=== PATIENT | male | born 1965 | race Caucasian/White ===

== ENCOUNTER 2019-09-27 12:12 | Emergency (ER) | payer BC, SELFPAY ==
[2019-09-27] VITALS (17 sets, daily range): BP systolic 133–157; BP diastolic 81–90; PULSE 71–96; RESP 12–25; TEMP 36.6; O2SAT 96–100
--- NOTE | ~2019-09-27 | XR_ITS ---
EXAMINATION: XR chest 2V EXAM DATE: 09/27/2019 12:56 INDICATION: Chest pain. TECHNIQUE: Frontal and lateral projections of the chest obtained and reviewed. Comparison is made to prior examination from 04/01/2018. FINDINGS: The lungs are clear. There are no pleural effusions. The cardiomediastinal silhouette is within normal limits. There is no pneumothorax suspected. The bones and soft tissues are unremarkab le. There is no significant interval change. IMPRESSION: No acute cardiopulmonary findings. Reviewed, dictated and finalized at location B.
--- NOTE | ~2019-09-27 | CT_ITS ---
EXAMINATION: CTA chest PE protocol DATE: 09/27/2019 17:16 INDICATION: Chest pain TECHNIQUE: Computed tomography angiography (CTA) of the chest was performed with 100 mL Omnipaque-350 intravenous contrast timed to evaluate the pulmonary arteries. Coronal maximum intensity projection 3D-reconstructions were created by the technologist. Automated exposure control and iterative reconst ruction technique were employed. Exam dose: 455.32 mGy-cm total exam DLP. COMPARISON: 09/26/2021 view chest FINDINGS: There is diagnostic contrast enhancement of the pulmonary arteries and no evidence of pulmo nary embolism. There is trace pericardial effusion. Heart size is normal. No thoracic aortic aneurysm or dissection. No hilar or mediastinal mass lesion or lymphadenopathy. 4.5 mm left lower lobe pulmonary nodule (series 4 image 82). If there are risk factors such as smokin g, radiating down exposure, consider follow-up imaging in 6 months; otherwise recommend CT follow-up in 12 months. Probable small benign fissural node of the greater fissure (series 4 image 58). Diverticulosis of the splenic flexure of the colon. No adrenal mass lesion. Diffuse idiopathic skeletal hyperostosis of the thoracic spine. No suspicious osteolytic or osteoblas tic lesions are noted. IMPRESSION: Recommend 6 month and 12 month follow-up of 4.5 mm left lower lobe pulmonary nodule depe nding upon risk factors No evidence of pulmonary embolism Trace pericardial effusion Reviewed, dictated and finalized at [facility]. Reviewed, dictated and finalized at location A. IMPRESSION: Recommend 6 month and 12 month follow-up of 4.5 mm left lower lobe pulmonary nodule depending upon risk factors No evidence of pulmonary embolism Trace pericardial effusion
--- NOTE | 2019-09-27 12:20 | ECG_ITS ---
Measurements Intervals [place] Rate: 86 P: 43 CT: 139 QRS: 16 QRSD: 84 T: 29 QT: 340 QTc: 408 Interpretive Statements SINUS RHYTHM NORMAL ECG Electronically Signed On 09-27-2019 14:45:17 CDT by Stevo Wray D.O.
[2019-09-27 12:40] LABS: Basophils Absolute Auto 0.1 K/mm3 (0.0-0.1); Basophils Percent Auto 0.4 % (0.2-1.2); Eosinophils Absolute Auto 0.3 K/mm3 (0-0.3); Eosinophils Percent Auto 2.2 % (0-4.4); Hematocrit 48.6 % (42.0-52.0); Hemoglobin 16.9 g/dL (14.0-18.0); Immature Granulocyte Absolute 0.05 K/mm3 (0.00-0.031); Immature Granulocyte Percent A 0.4 % (0-0.5); Lymphocytes Absolute Auto 2.32 K/mm3 (0.9-3.2); Mean Corpuscular HGB Conc 34.8 g/dl (32-36); Mean Corpuscular Hemoglobin 32.4 pg (26-34); Mean Corpuscular Volume 93.3 fl (80-100); Mean Platelet Volume 8.9 fl (7.4-10.4); Monocytes Absolute Auto 1.4 K/mm3 (0.1-0.6); Neutrophils Absolute Auto 7.5 K/mm3 (1.3-6.7); Platelet Count Result 254 k/mm3 (150-375); Red Blood Count 5.21 M/mm3 (4.6-6.20); Red Cell Distribution Width 13.6 % (11.5-14.5); White Blood Count 11.6 K/mm3 (4.5-10.0)
[2019-09-27] MEDS: ASPIRIN 81 MG CHEWABLE TABLET 324 MG PO (12:46)
[2019-09-27 12:48] LABS: Blood Urea Nitrogen 14 mg/dL (9-20); Carbon Dioxide 28 mmol/L (22-30); Chloride 107 mmol/L (98-107); Estimated CRCL calculation 72 ml/min; Estimated Glomerular Filt Rate > 60; Glucose 115 mg/dL (75-110); Potassium 4.1 mmol/L (3.4-5.0); Prothrombin Time 12.6 Seconds (11.1-14.7); Sodium 138 mmol/L (137-145)
[2019-09-27 12:49] LABS: Partial Thromboplastin Time 27.4 SECONDS (22.3-36.8)
[2019-09-27 13:09] LABS: Troponin I < 0.012 ng/mL (0.000-0.034)
[2019-09-27 15:53] LABS: Troponin I < 0.012 ng/mL (0.000-0.034)
--- NOTE | 2019-09-27 16:15 | ED.GENADULT ---
HPI - General Adult General Chief complaint: Chest Pain Stated complaint: CHEST PAIN Time Seen by Provider: 09/27/19 15:28 History of Present Illness HPI narrative: Patient is a 53 y/o male complaining of mid-sternal, sharp chest pain for several hours since this morning. He rates his pain as 8/10. He states that deep respiration and turning around make his pain worse. There is no pain radiation. He denies any cough, fever or SOB. Related Data Home Medications Medication Instructions Recorded Confirmed No Home Medications 09/27/19 09/27/19 Allergies Allergy/AdvReac Type Severity Reaction Status Date / Time No Known Allergies Allergy Verified 09/27/19 12:22 Review of Systems Constitutional: Constitutional: Denies chills, Denies fever(s), Denies headache(s) and Denies weakness Eyes: Eyes: Denies blurry vision ENT: Denies headache(s) and Denies neck pain Cardiovascular: Cardiovascular: Reports chest pain and Denies dyspnea Respiratory: Respiratory: Denies cough and Denies dyspnea Gastrointestinal: Gastrointestinal: Denies abdominal pain, Denies diarrhea, Denies nausea and Denies vomiting Genitourinary: Genitourinary: Denies hematuria and Denies dysuria Musculoskeletal: Musculoskeletal: Denies back pain and Denies neck pain Neurologic: Denies headache(s) and Denies weakness [facility] Family History Family History Other Diabetes mellitus Family history of arthritis Family history of malignant neoplasm Social History Social History Smoking status: Heavy tobacco smoker Alcohol intake: current Exam Const: General: no acute distress and well developed Orientation/consciousness: oriented to person, oriented to place, oriented to time and patient oriented x3 HENMT: Head: normocephalic Ears: external ears normal General nose exam: Normal external nose present Eyes: General: appearance normal, both eyes and all related structures Conjunctivae: conjunctivae normal Neck: Neck: normal visual inspection and full ROM Chest: Chest palpation & inspection: normal inspection of the chest and no tenderness Resp: Effort & Inspection: normal respiratory effort Auscultation: clear to auscultation bilaterally Cardio: Rate: regular rate Rhythm: regular rhythm GI: GI Palp: No abdominal tenderness and Yes Soft to palpation Skin: General skin exam: normal color and turgor normal Neuro: General: oriented to person, oriented to place, oriented to time and patient oriented x3 Cognition (Neuro): normal cognition Extrem: General: normal to inspection, full ROM and no pedal edema Psych: Appearance: grossly normal Mental Status: mental status grossly normal Affect: normal affect Course Vital Signs Vital signs: Vital Signs Temperature 36.6 C 09/27/19 12:17 Pulse Rate 86 09/27/19 12:17 Respiratory Rate 25 H 09/27/19 12:17 Blood Pressure 157/90 H 09/27/19 12:17 Pulse Oximetry 99 09/27/19 12:17 Temperature 36.6 C 09/27/19 12:17 Pulse Rate 71 09/27/19 18:06 Respiratory Rate 16 09/27/19 18:06 Blood Pressure 151/90 H 09/27/19 18:06 Pulse Oximetry 100 09/27/19 18:06 Medical Decision Making Vital Signs Vital Signs: Vital Signs Temperature 36.6 C 09/27/19 12:17 Pulse Rate 86 09/27/19 12:17 Respiratory Rate 25 H 09/27/19 12:17 Blood Pressure 157/90 H 09/27/19 12:17 Pulse Oximetry 99 09/27/19 12:17 Temperature 36.6 C 09/27/19 12:17 Pulse Rate 71 09/27/19 18:06 Respiratory Rate 16 09/27/19 18:06 Blood Pressure 151/90 H 09/27/19 18:06 Pulse Oximetry 100 09/27/19 18:06 Lab Data Result diagrams: 09/27/19 12:26 09/27/19 12:26 Labs: Lab Results 09/27/19 09/27/19 09/27/19 Range/Units 12:26 12:26 12:26 WBC 11.6 H (4.5-10.0) K/mm3 RBC 5.21 (4.6-6.20) M/mm3 Hgb 16.9 (14.0-18.0) g/dL Hc
[2019-09-27 16:29] LABS: D Dimer 0.72 ug/mL (<0.48)
[2019-09-27] MEDS: KETOROLAC 30 MG/ML VIAL (*BKC) IV PUSH (17:58)
== END 2019-09-27 18:00 | disposition home or self-care (01) ==
PROVIDERS: Emergency Medicine; Emergency Provider Emergency Medicine; PCP Family Medicine
DX: R07.2 Precordial pain (principal); R91.1 Solitary pulmonary nodule; F17.200 Nicotine dependence, unspecified, uncomplicated
CPT/HCPCS: 36415; 71046; 71275; 80048; 84484; 85025; 85380; 85610; 85730; 93005; 96374; 99284; A9270; J1885; Q9967

== ENCOUNTER 2020-01-06 06:36 | Inpatient (IN) | payer BC, SELFPAY ==
--- NOTE | ~2020-01-06 | CT_ITS ---
EXAMINATION: CT abdomen pelvis w con EXAM DATE: 01/06/2020 07:36 INDICATION: Abdominal pain, history diverticulitis. TECHNIQUE: Spiral CT of the abdomen and pelvis was performed following intravenous injection of 100 m L Omnipaque 350. Axial, coronal and sagittal images were reviewed. The dose-length product (DLP) fo r this examination was 464.00 mGy-cm. The exposure was tailored according to patient size (auto mA e xposure control), and iterative reconstruction (ASIR) was used as additional dose reduction technique . Comparison is made to prior examination from 08/27/2015. FINDINGS: The liver, spleen, adrenal glands and pancreas are unremarkable. Gallbladder is unremarkab le. No biliary obstruction. Portal and splenic veins are patent. Kidneys enhance symmetrically. T here is no hydronephrosis. The prostate is unremarkable. Collapsed bladder with prominent wall pro bably from undistended state. There is no retroperitoneal or pelvic lymphadenopathy. There is mild scattered arteriosclerotic disease. There is moderate sigmoid diverticulosis. There is mild adjacent inflammation, some edema of the wall . There is also a tiny fluid pocket along the wall measuring up to 1.2 cm in size. Probably acute unc omplicated diverticulitis with tiny peridiverticular abscess. The appendix is normal. The stomach an d small bowel are unremarkable. There is expected amount of colonic stool. No free intraperitoneal gas. The heart is normal in size. There are no pericardial or pleural effusions. The lung bases are unremarkable. There are no osteoblastic or osteolytic lesions identified. There is small umbili jarod fat-containing hernia. IMPRESSION: 1. Acute sigmoid diverticulitis with probable tiny peridiverticular abscess. Consider treating with antibiotics and following up exam in 2 weeks. 2. Small umbilical hernia. Reviewed, dictated and finalized at location A. IMPRESSION: 1. Acute sigmoid diverticulitis with probable tiny peridiverticular abscess. C onsider treating with antibiotics and following up exam in 2 weeks. 2. Small umbilical hernia.
[2020-01-06 06:39] VITALS: BP 134/74; PULSE 85; RESP 15; TEMP 36.5; O2SAT 98
[2020-01-06 06:59] LABS: Basophils Absolute Auto 0.1 K/mm3 (0.0-0.1); Basophils Percent Auto 0.5 % (0.2-1.2); Eosinophils Absolute Auto 0.2 K/mm3 (0-0.3); Eosinophils Percent Auto 1.6 % (0-4.4); Hematocrit 51.2 % (42.0-52.0); Immature Granulocyte Absolute 0.06 K/mm3 (0.00-0.031); Immature Granulocyte Percent A 0.5 % (0-0.5); Lymphocytes Absolute Auto 2.59 K/mm3 (0.9-3.2); Lymphocytes Percent Auto 22.6 % (18.3-44.2); Mean Corpuscular HGB Conc 35.2 g/dl (32-36); Mean Corpuscular Hemoglobin 32.4 pg (26-34); Mean Corpuscular Volume 92.1 fl (80-100); Mean Platelet Volume 8.9 fl (7.4-10.4); Monocytes Absolute Auto 1.9 K/mm3 (0.1-0.6); Monocytes Percent Auto 16.4 % (2.6-8.5); Neutrophils Absolute Auto 6.7 K/mm3 (1.3-6.7); Neutrophils Percent Auto 58.4 % (45.5-73.1); Platelet Count Result 266 k/mm3 (150-375); Red Blood Count 5.56 M/mm3 (4.6-6.20); Red Cell Distribution Width 12.6 % (11.5-14.5); White Blood Count 11.5 K/mm3 (4.5-10.0)
[2020-01-06 07:10] LABS: Alanine Aminotransferase 22 U/L (4-50); Albumin Level 4.4 g/dL (3.5-5.1); Alkaline Phosphatase 64 U/L (38-126); Anion Gap 7 mmol/L (8-16); Aspartate Amino Transferase 38 U/L (17-59); Bilirubin,Total 0.4 mg/dL (0.2-1.3); Blood Urea Nitrogen 11 mg/dL (9-20); Calcium 9.2 mg/dL (8.4-10.2); Carbon Dioxide 28 mmol/L (22-30); Chloride 105 mmol/L (98-107); Estimated Glomerular Filt Rate 52; Glucose 126 mg/dL (75-110); Lipase 53 U/L (23-300); Potassium 4.2 mmol/L (3.4-5.0); Sodium 140 mmol/L (137-145)
--- NOTE | 2020-01-06 07:13 | ED.ABDPAIN ---
HPI - Abdominal Pain General Chief Complaint: Abdominal Pain Stated Complaint: Abd pain Time Seen by Provider: 01/06/20 07:04 Source: RN notes reviewed History of Present Illness HPI narrative: Patient presents emergency department from home for abdominal pain. Patient states he has had pain in the lower abdomen for the past 4 days. Pain is described as sharp and stabbing in nature and does not radiate. He has a history of diverticulitis and was seen by his PCP 3 days ago started on Cipro and Flagyl and continues to have worsening pain. Denies any fevers or chills chest pain shortness of breath nausea vomiting or any other symptoms states he has been take medication as prescribed. States he last took hydrocodone this morning with minimal relief Related Data Allergies Allergy/AdvReac Type Severity Reaction Status Date / Time No Known Allergies Allergy Verified 01/06/20 06:42 Review of Systems Review of Systems: Narrative: Gen.: Denies fevers or chills ENT: Denies congestion Respiratory: Denies shortness of breath or cough CV: Denies chest pain or palpitations GI: See HPI denies burning, urgency, frequency or hematuria Musculoskeletal: Denies back pain or muscle pain Neuro: Denies numbness, tingling, weakness or focal weakness Skin: Denies rash Except as documented, all other systems reviewed and negative REPLACED BY [facility] Past Medical History Medical History (Updated 01/06/20 @ 08:28 by Jasvir Alvares DO) Diverticulitis Social History Social History (Updated 01/06/20 @ 07:14 by Jasvir Alvares DO) Smoking status: Never smoker Gender identity (if verbalized by the patient): Male Exam Narrative: Exam Narrative: APPEARANCE: No acute distress, nontoxic, resting in bed HEENT: Normocephalic, atraumatic, OMM RESPIRATORY: No respiratory distress, clear to auscultation bilaterally with no rhonchi wheezing or rales CARDIOVASCULAR: RRR s murmur ABDOMINAL: Soft, nondistended, tender palpation right lower quadrant left lower quadrant, no tenderness right upper quadrant left upper quadrant, no rebound or guarding MUSCULOSKELETAl: Moves all extremities. No clubbing, cyanosis or edema. NEURO: Awake and alert. Following commands, speech normal, no focal deficits SKIN:: Warm, dry. Normal Color PSYCHIATRIC: Normal affect/mood Course Course Emergency Course: Discussed Dr. Aguiar presentation work-up. Agrees with admission at this time Discussed with patient and family results of workup and diagnosis. Discussed need for admission. Patient and family understand and agree to current treatment plan Vital Signs Vital signs: Vital Signs Temperature 97.7 F 01/06/20 06:39 Pulse Rate 85 01/06/20 06:39 Respiratory Rate 15 01/06/20 06:39 Blood Pressure 134/74 01/06/20 06:39 Pulse Oximetry 98 01/06/20 06:39 Temperature 97.7 F 01/06/20 06:39 Pulse Rate 66 01/06/20 08:16 Respiratory Rate 18 01/06/20 08:16 Blood Pressure 136/78 01/06/20 08:16 Pulse Oximetry 99 01/06/20 08:16 MDM - Abdominal Pain Lab Data Result diagrams: 01/06/20 06:51 01/06/20 06:51 Labs: Lab Results 01/06/20 01/06/20 01/06/20 Range/Units 06:51 06:51 07:25 WBC 11.5 H (4.5-10.0) K/mm3 RBC 5.56 (4.6-6.20) M/mm3 Hgb 18.0 (14.0-18.0) g/dL Hct 51.2 (42.0-52.0) % MCV 92.1 (80-100) fl MCH 32.4 (26-34) pg MCHC 35.2 (32-36) g/dl RDW 12.6 (11.5-14.5) % Plt Count 266 (150-375) k/mm3 MPV 8.9 (7.4-10.4) fl Immature Gran % (Auto) 0.5 (0-0.5) % Neut % (Auto) 58.4 (45.5-73.1) % Lymph % (Auto) 22.6 (18.3-44.2) % Andrews % (Auto) 16.4 H (2.6-8.5) % Eos % (Auto) 1.6 (0-4.4) % Baso % (Auto) 0.5 (0.2-1.2) % Lymph # (Auto) 2.59 (0.9-3.2) K/mm3 Andrews # (Auto) 1.9 H (0.1-0.6) K/mm3 Eos # (Auto) 0.2 (0-0.3) K/mm3 Baso # (Auto) 0.1 (0.0-0.1) K/mm3 Abs Immat Gran (auto) 0.06 H (0.00-0.031) K/mm3 Absolute Neuts
[2020-01-06] MEDS: SODIUM CHLORIDE 0.9% IV 1,000 ML 999 ML IV CONT (07:23)
[2020-01-06] MEDS: ONDANSETRON INJ 4 MG/2 ML VIAL IV PUSH (07:23)
[2020-01-06] MEDS: MORPHINE SULFATE (*CRX) 4 MG/ML INJ IV PUSH ×4 (07:23→15:16)
[2020-01-06 07:41] LABS: Add Urine Microscopic? YES; Appearance Urine Clear (Clear); Bilirubin Urine Negative (Negative); Blood Urine 3+ (Negative); Color Urine Amber (Yellow); Glucose Urine UA Negative (Negative); Ketones Urine Trace mg/dL (Negative); Leukocyte Esterase Ur 1+ LEU/UL (Negative); Mucus Urine Moderate /lpf; Nitrate Urine Negative (Negative); Protein Urine 1+ mg/dL (Negative); RBC Urine 21-50 /hpf (0-2); Specific Grav Ur 1.026 (1.001-1.035); WBC Urine 0-3 /hpf
[2020-01-06 08:16] VITALS: BP 136/78; PULSE 66; RESP 18; O2SAT 99
--- NOTE | 2020-01-06 09:20 | PC.NURSE ---
This patient, Ramsey Simmons, was admitted to 3 [facility] Surg Room 301-01. Patient/family oriented to hospital policies and general routines including ID bracelet, bed and alarms, visiting hours, pain management, procedures, bathroom and other care routines, personal items, smoking policy, room service/diet, and visiting hours. Valuables list has been completed. Report from Gloria GARCIA. Information on how to activate the Rapid Response Team has been discussed. Patient/Family are encouraged to report perceived risks to care and to ask questions if they do not understand what they are told or what they should do.
[2020-01-06] MEDS: SODIUM CHLORIDE 0.9% IV 1,000 ML 125 ML IV CONT (09:27)
[2020-01-06] MEDS: KETOROLAC 30 MG/ML VIAL (*BKC) IV PUSH (09:29)
[2020-01-06 10:00] VITALS: BP 129/79; PULSE 65; RESP 18; TEMP 36.7; O2SAT 98
[2020-01-06 10:06] VITALS: BMI 26.4
[2020-01-06 14:00] VITALS: BP 125/82; PULSE 60; RESP 18; TEMP 36.8; O2SAT 99
--- NOTE | 2020-01-06 14:15 | PM.IMHP ---
H&P: HPI History of Present Illness Date/Time: 01/06/20 14:00 Chief complaint: Lower abdominal pain. Narrative: Ramsey Simmons is a 54-year-old male smoker, currently being treated for diverticulitis, who presented to the emergency department earlier today via private vehicle from home for evaluation of lower abdominal pain. He reports an insidious onset of diffuse lower abdominal pain which began on Friday evening. The pain is described as cramping in nature with occasional spasms and does not radiate. The pain is similar to previous episodes of diverticulitis and he was started on ciprofloxacin and metronidazole per his primary care provider on January 02. He was also given hydrocodone which he has been taking with only mild benefit. Unfortunately today his pain became much worse and he came in for evaluation. CT of abdomen and pelvis shows possible small travis diverticular abscess and he is being admitted in this setting. Currently he rates his pain 7/10 despite receiving IV morphine approximately 30 minutes ago. He has had some chills but no overt fever. He has not had nausea or vomiting. His last meal was approximately 18:00 last evening, and he believes his food does make his pain a bit worse. Last bowel movement was yesterday, without blood or mucus in the stool. Review of Systems Review of Systems: Narrative: Twelve systems were reviewed with pertinent positives and negatives as per HPI. No fever or sweats. No recent cold or flu symptoms. No sick contacts. He denies chest pain shortness of breath. He has never had signs or symptoms of alcohol withdrawal. Except as documented, all other systems were reviewed and are negative. [facility] Past Medical History Medical History (Updated 01/06/20 @ 16:29 by Luz Marina Camacho PA-C) Diverticulitis He has had 5 or 6 episodes of such since 2008. Pulmonary nodule Tobacco dependence Surgical History Surgical History (Updated 01/06/20 @ 16:29 by Luz Marina Camacho PA-C) History of arthroscopy of right knee History of elbow surgery Left elbow surgery. Family History Family History Father Diabetes mellitus Hypertension Social History Social History (Updated 01/06/20 @ 16:30 by Luz Marina Camacho PA-C) Social History: Surrogate decision maker: Eun Simmons, . Code status: Full code. Smoking packs per day: 1 Smoking cigarettes per day: 20.0 Years smoked: 30 Smoking pack-years: 30.00 Smoking status: Current every day smoker Tobacco type: cigarettes Alcohol intake: current Drinks per week: 18 Additional living arrangements comments: Lives in [place] with his . Additional occupation/education comments: Works at [employer]. Gender identity (if verbalized by the patient): Male Spiritual care concerns: No Meds Home Medications and Allergies Home Medications Medication Instructions Recorded Confirmed Type cholecalciferol (vitamin D3) 10 mcg PO DAILY 01/06/20 01/06/20 History [Vitamin D3] ciprofloxacin HCl 500 mg PO Q12H 01/06/20 01/06/20 History hydrocodone-acetaminophen 1 tablet PO Q6H PRN 01/06/20 01/06/20 History metronidazole 500 mg PO Q8H 01/06/20 01/06/20 History multivitamin [Daily Multi-Vitamin] 1 tablet PO DAILY 01/06/20 01/06/20 History Allergies Allergy/AdvReac Type Severity Reaction Status Date / Time No Known Allergies Allergy Verified 01/06/20 06:42 Vital Signs Vital Signs - 24 hr 01/06/20 06:39 01/06/20 08:16 Temperature 97.7 F Pulse Rate 85 66 Respiratory Rate 15 18 Blood Pressure 134/74 136/78 Pulse Oximetry 98 99 Exam Narrative: Exam Narrative: General: A well-developed male sitting up in bed in no acute distress. Weight: 85.9 kg. BMI: 26.4. HEENT: Wearing corrective lenses. Pupils reactive. Extraocular motions intact. Oral mucosa tacky. Neck: Supple. Respiratory: Lungs are clear to auscultati
[2020-01-06] MEDS: HYDROcodone/acetaminophen (*CRX) 5-325 MG TABLET 1 TAB PO ×2 (16:19→22:11)
[2020-01-06] MEDS: SODIUM CHLORIDE 0.9% IV 1,000 ML 85 ML IV CONT (18:44)
[2020-01-06 19:35] VITALS: O2SAT 96
[2020-01-06] MEDS: HYDROmorphone HCL INJ (*CRX) 1 MG/ML SYR 0.5 MG IV PUSH (21:10)
[2020-01-06 22:00] VITALS: BP 145/71; PULSE 63; RESP 20; TEMP 36.6; O2SAT 96
[2020-01-07] MEDS: HYDROcodone/acetaminophen (*CRX) 5-325 MG TABLET 1 TAB PO ×4 (04:18→23:33)
[2020-01-07] MEDS: SODIUM CHLORIDE 0.9% IV 1,000 ML 85 ML IV CONT ×2 (04:21→19:25)
[2020-01-07 06:00] VITALS: BP 140/70; PULSE 66; RESP 20; TEMP 36.7; O2SAT 96
[2020-01-07 06:30] LABS: Basophils Absolute Auto 0.1 K/mm3 (0.0-0.1); Basophils Percent Auto 0.6 % (0.2-1.2); Eosinophils Absolute Auto 0.4 K/mm3 (0-0.3); Eosinophils Percent Auto 3.1 % (0-4.4); Hemoglobin 15.9 g/dL (14.0-18.0); Immature Granulocyte Absolute 0.06 K/mm3 (0.00-0.031); Immature Granulocyte Percent A 0.5 % (0-0.5); Lymphocytes Absolute Auto 2.29 K/mm3 (0.9-3.2); Lymphocytes Percent Auto 18.4 % (18.3-44.2); Mean Corpuscular HGB Conc 34.6 g/dl (32-36); Mean Corpuscular Hemoglobin 31.9 pg (26-34); Mean Corpuscular Volume 92.4 fl (80-100); Mean Platelet Volume 9.2 fl (7.4-10.4); Monocytes Absolute Auto 1.9 K/mm3 (0.1-0.6); Monocytes Percent Auto 15.4 % (2.6-8.5); Neutrophils Absolute Auto 7.7 K/mm3 (1.3-6.7); Platelet Count Result 237 k/mm3 (150-375); Red Blood Count 4.98 M/mm3 (4.6-6.20); Red Cell Distribution Width 12.5 % (11.5-14.5); White Blood Count 12.4 K/mm3 (4.5-10.0)
[2020-01-07] MEDS: HYDROmorphone HCL INJ (*CRX) 1 MG/ML SYR 0.5 MG IV PUSH ×3 (06:31→18:43)
[2020-01-07 06:35] LABS: Anion Gap 4 mmol/L (8-16); Blood Urea Nitrogen 11 mg/dL (9-20); Calcium 8.3 mg/dL (8.4-10.2); Carbon Dioxide 28 mmol/L (22-30); Chloride 105 mmol/L (98-107); Estimated CRCL calculation 49 ml/min; Estimated Glomerular Filt Rate 52; Glucose 80 mg/dL (75-110); Magnesium 2.2 mg/dL (1.6-2.3); Potassium 4.4 mmol/L (3.4-5.0); Sodium 137 mmol/L (137-145)
[2020-01-07] MEDS: MULTIVITAMINS THERAPEUTIC TAB (*BKC) 1 TABLET PO (08:23)
[2020-01-07] MEDS: CHOLECALCIFEROL 400 UNITS TABLET (VIT D) PO (08:23)
--- NOTE | 2020-01-07 09:53 | PM.IMPN ---
Progress Note: A&P Assessment and Plan (1) Abscess of sigmoid colon due to diverticulitis: Code(s): K57.20 - Diverticulitis of large intestine with perforation and abscess without bleeding Status: Acute Assessment and Plan: CT abd/pelvis notes acute sigmoid diverticulitis with probably tiny peridiverticular abscess. Clinically, patient appears to have improved with some improvement overnight with IV antibiotics and tolerating CLD. Will consider Surgery consult pending improvement; likely will discuss case today to see if they need to follow patient Continue CLD; if tolerating diet and continued clinical improvement, will consider advancing Pain control as needed; consider weaning narcotics if continued improvement Continue IV zosyn for now Monitor (2) Failure of outpatient treatment: Code(s): Z78.9 - Other specified health status Status: Acute Assessment and Plan: Patient started treatment of diverticulitis as an outpatient on 01/[address] a/p results as above. Continue treatment with IV antibiotics as above Consider surgery consult as above (3) Diverticulitis: Code(s): K57.92 - Diverticulitis of intestine, part unspecified, without perforation or abscess without bleeding Status: Acute Assessment and Plan: Please see above a/p (4) Renal failure: Code(s): N19 - Unspecified kidney failure Status: Acute Assessment and Plan: Cr 1.40 today; stable. Appears to be at baseline based on review of labs from previous hospital stays dating back to 2016, although also possibly secondary to poor PO intake Monitor Continue with IV fluids for now (5) Tobacco dependence: Code(s): F17.200 - Nicotine dependence, unspecified, uncomplicated Status: Acute Assessment and Plan: No need for nicotine patch at this time Subjective Date/time seen: 01/07/20 09:53 Interval history: Patient is a 54 yo M with history of diverticulosis with several previous episodes of diverticulitis who is seen in follow up for diverticulitis. Patient states he feels slightly better today, although pain still occasionally ranges between 5-6/10. He states he tolerated CLD yesterday. He has definitely seen an improvement since Friday. No other complaints. Denies f/c/s, headaches, dizziness, lightheadedness, cp/palpitations, sob/cough, n/v/d/c, melena, BRBPR, dysuria, hematuria, cloudy urine, calf pain/swelling. Review of Systems Review of Systems: All systems reviewed & are unremarkable except as noted in HPI and below Exam Narrative: Exam Narrative: General: A well-developed male sitting up in bed in no acute distress. HEENT: Wearing corrective lenses. MMM Respiratory: Lungs are clear to auscultation bilaterally. Cardiovascular: Regular rate and rhythm with S1-S2. Gastrointestinal: Abdomen is soft and nondistended with positive bowel sounds. He is slightly tender to palpation in lower abdomen, diffusely. No voluntary guarding or rebound tenderness. Skin: Warm and dry. No rash or lesions on limited exam. Extremities: No cyanosis, clubbing, or edema. Radial and pedal pulses intact. NTTP b/l calves Neurological: Alert. Speech is clear. No gross focal deficits to casual conversation. Psychiatric: Pleasant and cooperative with normal mood and affect. Judgment and insight intact. Objective Data Vital Signs Vital Signs: Last Vital Signs Temp 98.0 F 01/07/20 06:00 Pulse 66 01/07/20 06:00 Resp 20 01/07/20 06:00 BP 140/70 01/07/20 06:00 Pulse Ox 96 01/07/20 06:00 Intake/Output Intake/Output: Intake & Output 01/04/20 01/05/20 01/06/20 01/07/20 23:59 23:59 23:59 23:59 Intake Total 2450 1890 Output Total 125 1900 Balance 232
[2020-01-07 14:00] VITALS: BP 110/68; PULSE 64; RESP 16; TEMP 36.6; O2SAT 99
[2020-01-07 22:00] VITALS: BP 116/60; PULSE 69; RESP 20; TEMP 36.3; O2SAT 98
[2020-01-08] MEDS: HYDROmorphone HCL INJ (*CRX) 1 MG/ML SYR 0.5 MG IV PUSH ×2 (00:56→07:26)
[2020-01-08] MEDS: SODIUM CHLORIDE 0.9% IV 1,000 ML 85 ML IV CONT (05:42)
[2020-01-08] MEDS: HYDROcodone/acetaminophen (*CRX) 5-325 MG TABLET 1 TAB PO ×4 (05:45→23:58)
[2020-01-08 06:00] VITALS: BP 126/66; PULSE 68; RESP 20; TEMP 36.6; O2SAT 98
[2020-01-08 06:22] LABS: Basophils Absolute Auto 0.1 K/mm3 (0.0-0.1); Basophils Percent Auto 0.5 % (0.2-1.2); Eosinophils Absolute Auto 0.2 K/mm3 (0-0.3); Eosinophils Percent Auto 2.1 % (0-4.4); Hematocrit 45.6 % (42.0-52.0); Hemoglobin 15.7 g/dL (14.0-18.0); Immature Granulocyte Absolute 0.03 K/mm3 (0.00-0.031); Immature Granulocyte Percent A 0.3 % (0-0.5); Lymphocytes Absolute Auto 2.45 K/mm3 (0.9-3.2); Lymphocytes Percent Auto 22.9 % (18.3-44.2); Mean Corpuscular HGB Conc 34.4 g/dl (32-36); Mean Corpuscular Hemoglobin 31.5 pg (26-34); Mean Corpuscular Volume 91.4 fl (80-100); Mean Platelet Volume 9.1 fl (7.4-10.4); Monocytes Absolute Auto 1.4 K/mm3 (0.1-0.6); Monocytes Percent Auto 13.1 % (2.6-8.5); Neutrophils Absolute Auto 6.5 K/mm3 (1.3-6.7); Neutrophils Percent Auto 61.1 % (45.5-73.1); Platelet Count Result 269 k/mm3 (150-375); Red Blood Count 4.99 M/mm3 (4.6-6.20); Red Cell Distribution Width 12.3 % (11.5-14.5); White Blood Count 10.7 K/mm3 (4.5-10.0)
[2020-01-08 06:41] LABS: Anion Gap 4 mmol/L (8-16); Blood Urea Nitrogen 10 mg/dL (9-20); Calcium 8.5 mg/dL (8.4-10.2); Carbon Dioxide 28 mmol/L (22-30); Chloride 106 mmol/L (98-107); Estimated CRCL calculation 71 ml/min; Estimated Glomerular Filt Rate > 60; Glucose 78 mg/dL (75-110); Magnesium 2.4 mg/dL (1.6-2.3); Potassium 4.2 mmol/L (3.4-5.0); Sodium 138 mmol/L (137-145)
[2020-01-08] MEDS: MULTIVITAMINS THERAPEUTIC TAB (*BKC) 1 TABLET PO (08:26)
[2020-01-08] MEDS: CHOLECALCIFEROL 400 UNITS TABLET (VIT D) PO (08:26)
--- NOTE | 2020-01-08 10:42 | PM.IMPN ---
Progress Note: A&P Assessment and Plan (1) Abscess of sigmoid colon due to diverticulitis: Code(s): K57.20 - Diverticulitis of large intestine with perforation and abscess without bleeding Status: Acute Assessment and Plan: CT abd/pelvis notes acute sigmoid diverticulitis with probably tiny peridiverticular abscess. Clinically, patient appears to have continued improvement. Tolerating diet. Pain improved. Comfortable with advancing diet. Discussed case with General Surgeon, Dr. 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 He did, however, recommend he follow up with him as an outpatient in 2 weeks to discuss further intervention as he has had several episodes of diverticulitis and may be a candidate for surgery. Patient and agreeable to this. Dr. Pompa recommended low fiber diet for 2 weeks once clinically improved. Also recommended PO Cipro and Flagyl at discharge. Advance diet as tolerated to low fiber. Start with FLD for lunch Pain control as needed; will wean narcotics today Continue IV zosyn for now Will d/c IVF Monitor (2) Failure of outpatient treatment: Code(s): Z78.9 - Other specified health status Status: Acute Assessment and Plan: Patient started treatment of diverticulitis as an outpatient on 01/[address] a/p results as above. Continue treatment with IV antibiotics as above Consider surgery consult as above (3) Diverticulitis: Code(s): K57.92 - Diverticulitis of intestine, part unspecified, without perforation or abscess without bleeding Status: Acute Assessment and Plan: Please see above a/p (4) Renal failure: Code(s): N19 - Unspecified kidney failure Status: Acute Assessment and Plan: Cr 1.10 today; stable. Appears to be at baseline based on review of labs from previous hospital stays dating back to 2016, although also possibly secondary to poor PO intake Monitor Stop IVF F/u with PCP (5) Tobacco dependence: Code(s): F17.200 - Nicotine dependence, unspecified, uncomplicated Status: Acute Assessment and Plan: No need for nicotine patch at this time (6) Hematuria: Code(s): R31.9 - Hematuria, unspecified Status: Acute Assessment and Plan: As per HPI, patient has had longstanding issue with hematuria seemingly after sustaining a blunt, traumatic injury at work and has seen Dr. Sauer in the past. Recommended he continue to follow up with his PCP and even Dr. Sauer for further management. He and is agreeable to this. CT abd/pelvis show no signs of renal/bladder stones, unremarkable prostate, although there is a collapsed bladder with prominent wall likely from undistended state per Radiologist interpretation. Subjective Date/time seen: 01/08/20 10:42 Interval history: Patient is a 54 yo M with history of diverticulosis with several previous episodes of diverticulitis who is seen in follow up for diverticulitis. Patient states he feels better today. Current pain 2/10, but occasionally has severe pain he associates with brief spasms. Has had several nonbloody BMs overnight. tolerating diet. Feels comfortable with advancing diet. Notes that he has had longstanding microscopic hematuria for quite some time now after he sustained a blunt traumatic injury to the lower abdomen at work. He has seen with Dr. Sauer about this issue in the past without definitive answer. No other complaints. Denies f/c/s, headaches, dizziness, lightheadedness, cp/palpitations, sob/cough, n/v/d/c, melena, BRBPR, dysuria, hematuria, cloudy
[2020-01-08 14:00] VITALS: BP 129/73; PULSE 68; RESP 20; TEMP 36.5; O2SAT 95
[2020-01-08] MEDS: MELATONIN 5 MG TABLET 10 MG PO (20:19)
[2020-01-08 22:00] VITALS: BP 122/63; PULSE 60; RESP 20; TEMP 36.6; O2SAT 96
[2020-01-09 06:00] VITALS: BP 110/67; PULSE 68; RESP 16; TEMP 36.2; O2SAT 97
[2020-01-09 06:13] LABS: Hematocrit 46.3 % (42.0-52.0); Hemoglobin 16.2 g/dL (14.0-18.0); Mean Corpuscular Volume 91.3 fl (80-100); Mean Platelet Volume 9.3 fl (7.4-10.4); Platelet Count Result 286 k/mm3 (150-375); Red Blood Count 5.07 M/mm3 (4.6-6.20); Red Cell Distribution Width 12.2 % (11.5-14.5); White Blood Count 8.8 K/mm3 (4.5-10.0)
[2020-01-09 06:20] LABS: Anion Gap 5 mmol/L (8-16); Blood Urea Nitrogen 7 mg/dL (9-20); Calcium 8.8 mg/dL (8.4-10.2); Carbon Dioxide 29 mmol/L (22-30); Chloride 107 mmol/L (98-107); Estimated CRCL calculation 65 ml/min; Estimated Glomerular Filt Rate > 60; Glucose 98 mg/dL (75-110); Magnesium 2.3 mg/dL (1.6-2.3); Potassium 4.1 mmol/L (3.4-5.0); Sodium 141 mmol/L (137-145)
[2020-01-09] MEDS: MULTIVITAMINS THERAPEUTIC TAB (*BKC) 1 TABLET PO (08:55)
[2020-01-09] MEDS: CHOLECALCIFEROL 400 UNITS TABLET (VIT D) PO (08:55)
--- NOTE | 2020-01-09 09:13 | PM.DS ---
DS: Admitting Diagnosis Admitting Diagnosis Admitting Diagnosis: Lower abdominal pain. DS: Discharge Diagnosis Discharge Diagnosis (1) Abscess of sigmoid colon due to diverticulitis: Status: Acute Assessment and Plan: CT abd/pelvis notes acute sigmoid diverticulitis with probably tiny peridiverticular abscess. Clinically, patient appears to have continued improvement again today. Tolerating Low fiber diet overnight and today. Pain improved, although has isolated episodes of sharp pain associated with certain movements and resolve quickly. Discussed case with General Surgeon, Dr. Pompa, earlier in stay who reviewed the case and felt he would not change management analyst at this point and therefore did not feel he needed to be consulted at this moment, unless patient's conditioned worsened. He recommended patient should follow up with him as an outpatient in 2 weeks to discuss further intervention as he has had several episodes of diverticulitis and may be a candidate for surgery. Patient and agreeable to this. Dr. Pompa recommended low fiber diet for 2 weeks once clinically improved. Also recommended PO Cipro and Flagyl at discharge. Continue Low fiber diet x 2 weeks, then high fiber diet Will do a few doses of Bradley for breakthrough pain after discharge, but otherwise, will do Tylenol as needed D/c home today Will resume his cipro and flagyl tonight and have him discuss with his PCP as to duration of treatment or if he should change abx (2) Failure of outpatient treatment: Status: Acute Assessment and Plan: Patient started treatment of diverticulitis as an outpatient on 01/[address] a/p results as above. IV zosyn during stay with significant improvement OP surgical referral will be given F/u with PCP (3) Diverticulitis: Status: Acute Assessment and Plan: Please see above a/p (4) Renal failure: Status: Acute Assessment and Plan: Cr 1.20 today; stable. Appears to be at baseline based on review of labs from previous hospital stays dating back to 2016, although also possibly secondary to poor PO intake BMP next week F/u with PCP (5) Tobacco dependence: Status: Acute Assessment and Plan: No need for nicotine patch at this time (6) Hematuria: Status: Acute Assessment and Plan: As per previous follow up notes, patient has had longstanding issue with hematuria seemingly after sustaining a blunt, traumatic injury at work and has seen Dr. Sauer in the past. Recommended he continue to follow up with his PCP and even Dr. Sauer for further management. He and his agreeable to this. CT abd/pelvis show no signs of renal/bladder stones, unremarkable prostate, although there is a collapsed bladder with prominent wall likely from undistended state per Radiologist interpretation. DS: Summary Hospital Course Reason for hospitalization: Diverticulitis, failed outpatient treatment Hospital Course: Patient is a 54 yo male smoker, who was being treated for diverticulitis prior to arrival, who presented to the emergency department on 01/05 via private vehicle from home for evaluation of lower abdominal pain. Patient unfortunately had worsening lower abdominal pain despite being treated with oral antibiotics which prompted him to proceed to the ED. While in the ED, CT abd/pelvis found possible small travis diverticular abscess and leukocytosis. Patient was started on IV zosyn from the ED. Patient admitted under this setting. Please see H&P for further details. Presenting VS: Temp Pulse Resp BP Pulse Ox 97.7 F 85 15 134/74 98 01/06/20 06:39 01/06/20 06:39 01/06/20 06:39 01/06/20 06:39 01/06/20 06:39 Presenting Pertinent labs
== END 2020-01-09 12:15 | disposition home or self-care (01) | DRG 392 ==
LOC: ANHED 08:28 → ANH3MEDSUR 08:44
PROVIDERS: Emergency Medicine; Admitting Provider Family Medicine; Emergency Provider Emergency Medicine; PCP Family Medicine; Visit Provider Physician Assistant
DX: K57.20 Diverticulitis of large intestine with perforation and abscess without bleeding (principal); N17.9 Acute kidney failure, unspecified; R31.9 Hematuria, unspecified; R91.1 Solitary pulmonary nodule; F17.210 Nicotine dependence, cigarettes, uncomplicated
CPT/HCPCS: 36415; 74177; 80048; 80053; 81001; 83690; 83735; 85025; 85027; 96361; 96365; 96375; 99285; A9270; G0378; J1170; J1885; J2270; J2405; J2543; J7030; Q9967

== ENCOUNTER 2020-01-18 07:36 | Outpatient (CLI) | payer BC, SELFPAY ==
--- NOTE | ~2020-01-18 | CT_ITS ---
EXAMINATION: CT abdomen pelvis wo con DATE: 01/18/2020 07:54 INDICATION: Diverticulitis with abscess TECHNIQUE: Computed tomography (CT) of the abdomen and pelvis was performed without intravenous contr ast. The dose-length product (DLP) was 422.00 mGy-cm. Automated exposure control and iterative recons truction technique were employed. COMPARISON: 01/06/2020 FINDINGS: Minimal dependent atelectasis is present in the lung bases. The heart size is normal. Stabl e nodules of the visualized lung bases are consistent with old granulomatous disease. The liver, sple en, pancreas, gallbladder, and adrenal glands are normal. The kidneys are unremarkable. The appendix is normal. No pathologically enlarged abdominal or pelvic lymph nodes are identified. There is no mariusz e intraperitoneal gas or evidence of bowel obstruction. Sigmoid diverticulosis is again noted. Althou gh limited by the absence of intravenous contrast, the previously identified intramural abscess of th e sigmoid colon is no longer identified. There is a small fat-containing umbilical hernia. There is m ild lumbar spondylosis. IMPRESSION: 1. Colonic diverticulosis with interval resolution of previously described abscess. No acute findings . Reviewed, dictated and finalized at location A. IMPRESSION: 1. Colonic diverticulosis with interval resolution of previously described absc ess. No acute findings.
== END 2020-01-18 07:37 | disposition home or self-care (01) ==
PROVIDERS: PCP Family Medicine; Visit Provider Family Medicine
DX: K57.90 Diverticulosis of intestine, part unspecified, without perforation or abscess without bleeding (principal)
CPT/HCPCS: 74176

== ENCOUNTER → 2020-02-16 09:50 | Outpatient (CLI) | payer BC, SELFPAY ==
--- NOTE | ~2020-02-16 | MR_ITS ---
EXAMINATION: MR lumbar spine wo con DATE: 02/16/2020 10:20 INDICATION: Low back pain TECHNIQUE: Magnetic resonance imaging (MRI) of the lumbar spine was performed without intravenous con trast. Sequences included sagittal T2-weighted FSE, sagittal T2-weighted FS FSE, sagittal T1-weighted FSE, and axial T2-weighted FSE. COMPARISON: None FINDINGS: Alignment is normal. Vertebral body heights are normal. Moderate disc height loss with mild fibrofatt y and fibrovascular degenerative endplate changes at T11-T12. Mild to moderate disc height loss at L5 -S1, mild disc height loss at L3-L4 and L4-L5 and disc desiccation without significant disc height lo ss at L2-L3. There is annular fissures at L4-5 and L5-S1. There is a tiny Schmorl's node associated w ith the annular fissure along the posterior rim of L5 with mild surrounding marrow edema. Marrow sign al is otherwise normal. The conus medullaris terminates at L2. There is normal signal in the caudal s dahlia cord. A couple subcentimeter T2 hyperintense left renal cyst. Several diverticula along the vis ualized portion of the descending colon. Paravertebral soft tissues are unremarkable. The following d isc levels are specifically discussed: T11-T12: Disc is bulging. There is mild bilateral facet joint osteoarthritis. There is mild left neur al foraminal stenosis. There is mild central canal stenosis. T12-L1: The disc does not extend beyond the endplate margin. There is mild bilateral facet joint oste oarthritis. There is no neural foraminal stenosis. There is no central canal stenosis. L1-L2: The disc does not extend beyond the endplate margin. There is mild bilateral facet joint osteo arthritis. There is no neural foraminal stenosis. There is no central canal stenosis. L2-L3: Disc is mildly bulging. There is mild bilateral facet joint osteoarthritis. There is minimal b ilateral neural foraminal stenosis. There is minimal central canal stenosis. L3-L4: Disc is mildly bulging. There is mild bilateral facet joint osteoarthritis. There is mild bila teral neural foraminal stenosis. There is mild central canal stenosis. L4-L5: Disc is bulging. There is mild bilateral facet joint osteoarthritis. There is mild bilateral n eural foraminal stenosis. There is mild central canal stenosis. L5-S1: Disc is bulging. There is a right and moderate to severe left facet joint osteoarthritis. Ther e is moderate bilateral neural foraminal stenosis. There is mild central canal stenosis. IMPRESSION: 1. Moderate lower thoracic and lower lumbar spondylosis. Reviewed, dictated and finalized at location A. NT SELECTOR
== END ==
PROVIDERS: Visit Provider Nurse Practitioner Family
DX: M47.894 Other spondylosis, thoracic region (principal); M47.896 Other spondylosis, lumbar region
CPT/HCPCS: 72148

== ENCOUNTER 2020-08-23 02:56 | Emergency (ER) | payer BC, SELFPAY ==
[2020-08-23 02:58] VITALS: BP 143/81; PULSE 85; RESP 18; TEMP 36.7; O2SAT 98
--- NOTE | 2020-08-23 03:33 | ED.EXTPRO ---
HPI - Extremity Problem General Chief complaint: Extremity Problem,Nontraumatic Stated complaint: right shoulder blade pain-left side of neck pain Time Seen by Provider: 08/23/20 03:13 Source: patient Mode of arrival: ambulatory Limitations: no limitations History of Present Illness HPI Narrative: Patient is a 54-year-old male complaining of left-sided neck pain, left trapezius, 10 on 10, worse with movement and palpation of his left trapezius, radiating to his right shoulder that started at 2 AM yesterday and has progressively worsened. Patient denies any injury to the area. Patient denies any weakness, numbness or incontinence. Patient denies any headache, dizziness, chest pain, shortness of breath, abdominal pain, nausea, vomiting, fever or chills. Related Data Home Medications Medication Instructions Recorded Confirmed cholecalciferol (vitamin D3) 10 mcg PO DAILY 01/06/20 01/06/20 [Vitamin D3] ciprofloxacin HCl 500 mg PO Q12H 01/06/20 01/06/20 hydrocodone-acetaminophen 1 tablet PO Q6H PRN 01/06/20 01/06/20 metronidazole 500 mg PO Q8H 01/06/20 01/06/20 multivitamin [Daily Multi-Vitamin] 1 tablet PO DAILY 01/06/20 01/06/20 Allergies Allergy/AdvReac Type Severity Reaction Status Date / Time morphine AdvReac Vomiting Verified 08/23/20 02:58 tramadol AdvReac Vomiting Verified 08/23/20 02:58 Review of Systems Review of Systems: All systems reviewed & are unremarkable except as noted in HPI and below Constitutional: Constitutional: Denies body ache(s), Denies chills, Denies excessive sweating, Denies fatigue, Denies fever(s), Denies headache(s), Denies lethargy, Denies malaise, Denies weakness and Denies weight loss Eyes: Eyes: Denies blurry vision, Denies change in vision and Denies loss of vision ENT: Denies dizziness, Denies ear discharge, Denies headache(s), Denies lip swelling, Denies epistaxis, Denies nasal congestion, Denies neck pain, Denies throat swelling and Denies tongue swelling Cardiovascular: Cardiovascular: Denies chest pain, Denies chest pain at rest, Denies chest pain with activity, Denies diaphoresis, Denies rapid heart rate, Denies edema, Denies irregular heart rhythm, Denies lightheadedness, Denies palpitations, Denies dyspnea and Denies dyspnea on exertion Respiratory: Respiratory: Denies chest congestion, Denies cough, Denies hemoptysis, Denies dyspnea and Denies dyspnea on exertion Gastrointestinal: Gastrointestinal: Denies abdominal pain, Denies melena, Denies hematochezia, Denies diarrhea, Denies nausea, Denies vomiting and Denies hematemesis Musculoskeletal: Musculoskeletal: Denies abnormal gait, Denies deformity, Denies joint swelling and Denies numbness Neurologic: Denies Abnormal speech present, Denies abnormal gait, Denies confusion, Denies dizziness, Denies headache(s), Denies focal weakness, Denies loss of vision, Denies numbness, Denies Other visual disturbances, Denies Sensory deficit (Neuro) and Denies weakness Psychiatric: Psychiatric: Denies confusion, Denies depression, Denies auditory hallucinations, Denies homicidal ideation and Denies suicidal ideation Endocrine: Endocrine: Denies cold intolerance, Denies excessive sweating, Denies fatigue, Denies heat intolerance and Denies palpitations Hematologic/Lymphatic: Hematologic/Lymphatic: Denies easy bleeding and Denies easy bruising Allergic/Immunologic: Allergic/Immunologic: Denies lip swelling, Denies throat swelling and Denies tongue swelling PMFSH Past Medical History Medical History (Updated 08/23/20 @ 04:46 by Jasvir Perla MD) Diverticulitis He has had 5 or 6 episodes of such since 2008. Pulmonary nodule Tobacco dependence Surgical History Surgical History History of arthroscopy of right knee History of elbow surgery Left elbow surgery. Family History Family History Father Diabetes mellitus Hypertens
[2020-08-23] MEDS: KETOROLAC 30 MG/ML VIAL (*BKC) IV PUSH (03:50)
[2020-08-23] MEDS: diazePAM INJ (*CRX) 10 MG/2 ML SYRINGE 5 MG IV PUSH (03:51)
[2020-08-23] MEDS: HYDROcodone/acetaminophen (*CRX) 5-325 MG TABLET 2 TAB PO (03:58)
[2020-08-23 05:00] VITALS: BP 136/72; PULSE 88; RESP 18; TEMP 36.6; O2SAT 100
== END 2020-08-23 05:00 | disposition home or self-care (01) ==
PROVIDERS: Emergency Provider Emergency Medicine; PCP Family Medicine
DX: M43.6 Torticollis (principal); F17.210 Nicotine dependence, cigarettes, uncomplicated
CPT/HCPCS: 96374; 96375; 99284; A9270; J1885; J3360

== ENCOUNTER 2021-01-03 10:43 | Outpatient (CLI) | payer BC, SELFPAY ==
--- NOTE | ~2021-01-03 | XR_ITS ---
EXAMINATION: XR ribs RT 2V EXAM DATE: 01/03/2021 11:14 INDICATION: Right Side Lower Lateral Rib Pain After Twisting Injury. TECHNIQUE: Frontal projection of the upper right ribs, frontal projection of the lower right ribs, ob lique projection of the right ribs, without chest x-ray(s) for interpretation. Correlation is made to chest x-ray 09/27/2019. FINDINGS: There are no displaced acute right rib fractures identified. There is no soft tissue abno rmality seen. No confluent consolidation, pneumothorax or pleural effusion suspected. IMPRESSION: Unremarkable right rib exam. Reviewed, dictated and finalized at location A.
== END 2021-01-03 10:44 | disposition home or self-care (01) ==
LOC: ANHIMG 10:48
PROVIDERS: PCP Family Medicine; Visit Provider Physician Assistant
DX: R07.81 Pleurodynia (principal)
CPT/HCPCS: 71100

== ENCOUNTER 2023-01-06 10:19 | Outpatient (CLI) | payer BC, SELFPAY ==
--- NOTE | ~2023-01-06 | XR_ITS ---
Supine and upright views of the abdomen Clinical history: Abdominal pain Findings: Bowel gas pattern is nonspecific. No evidence for obstruction or free air. No abnormal mass lesion or calcification is seen. Osseous structures are intact. Impression: No significant abnormality is seen. Reviewed, dictated and finalized at [facility]. Impression: No significant abnormality is seen.
== END 2023-01-06 10:20 | disposition home or self-care (01) ==
LOC: ANHIMG 10:28
PROVIDERS: PCP Family Medicine; Visit Provider Physician Assistant
DX: R10.9 Unspecified abdominal pain (principal)
CPT/HCPCS: 74018

== ENCOUNTER 2023-01-22 11:29 | Outpatient (CLI) | payer BC, SELFPAY ==
--- NOTE | ~2023-01-22 | XR_ITS ---
XR lumbar spine min 4V DATE: 01/22/2023 11:50 INDICATION: Low back pain for 3 weeks. No injury. TECHNIQUE: AP, lateral, bilateral oblique views, coned lateral lumbosacral view COMPARISON: 12/28/2018 lumbar spine 02/16/2020 MRI lumbar spine FINDINGS: Mild thoracolumbar levoscoliosis. Normal alignment lumbar spine. No fracture or bone destruction. The lumbar pedicles are intact. No sp ondylolisthesis is noted. There is moderate degenerative spurring of the lumbar spine. Lumbar and lumbosacral interspaces are r elatively well preserved. The sacroiliac joints are normally aligned. IMPRESSION: Moderate degenerative spurring Reviewed, dictated and finalized at location B.
== END 2023-01-22 11:30 | disposition home or self-care (01) ==
PROVIDERS: PCP Family Medicine; Visit Provider Physician Assistant
DX: M54.50 Low back pain, unspecified (principal)
CPT/HCPCS: 72110

== ENCOUNTER 2023-05-13 13:39 | Emergency (ER) | payer BC, SELFPAY ==
--- NOTE | ~2023-05-13 | XR_ITS ---
EXAMINATION: XR chest 2V DATE: 05/13/2023 14:28 INDICATION: Cough and shortness of breath TECHNIQUE: PA and lateral views of the chest are obtained. COMPARISON: 01/03/2021 FINDINGS: There are subtle patchy opacities of the mid and lower lung zones. No pleural effusion or p neumothorax. The cardiomediastinal silhouette is normal. There is mild thoracic spondylosis. IMPRESSION: 1. Subtle patchy opacities of the mid and lower lung zones which could reflect pneumonia. Reviewed, dictated and finalized at location L. REMOVAL SUPERVISOR
[2023-05-13 13:47] VITALS: BP 143/80; PULSE 87; RESP 16; TEMP 36.8; O2SAT 99
--- NOTE | 2023-05-13 14:17 | ED.GENADULT ---
HPI - General Adult General Chief complaint: Shortness of Breath/Dyspnea Stated complaint: short of breath Time Seen by Provider: 05/13/23 14:18 Source: patient, RN notes reviewed and old records reviewed Mode of arrival: ambulatory Limitations: no limitations History of Present Illness HPI narrative: 57-year-old male presents to the [facility] with complaints of shortness of breath for at least a week. Had a cough with shortness of breath and was seen by primary care provider on April 18. Patient reports that the cough has improved however the shortness of breath has definitely got worse. Patient States ?I just do not feel right. ? Patient is smoker Onset (ago): week(s) (4) Treatments prior to arrival: other (Cough medicine) Related Data Allergies Allergy/AdvReac Type Severity Reaction Status Date / Time morphine AdvReac Intermediate Vomiting Verified 05/13/23 14:41 tramadol AdvReac Intermediate Vomiting Verified 05/13/23 14:41 Review of Systems Review of Systems: All systems reviewed & are unremarkable except as noted in HPI and below Constitutional: Constitutional: Reports no additional constitutional complaints Eyes: Eyes: Reports no additional eye complaints ENT: Reports system reviewed and no additional complaints, except as documented Cardiovascular: Cardiovascular: Reports no additional cardiovascular complaints, Denies chest pain and Denies dyspnea Respiratory: Respiratory: Reports as per HPI, Denies chest congestion, Denies cough and Reports dyspnea Gastrointestinal: Gastrointestinal: Reports no additional gastrointestinal complaints, Denies abdominal pain, Denies nausea and Denies vomiting Musculoskeletal: Musculoskeletal: Reports no additional musculoskeletal complaints Integumentary/Breasts: Skin/Breast: Reports system reviewed and no additional complaints, except as docu Neurologic: Reports system reviewed and no additional complaints, except as documented Psychiatric: Psychiatric: Reports no additional psychiatric complaints Allergic/Immunologic: Allergic/Immunologic: Reports no additional allergic/immunologic complaints [facility] Past Medical History Medical History Degenerative disc disease Diverticulitis He has had 5 or 6 episodes of such since 2008. Osteoarthritis Surgical History Surgical History History of arthroscopy of right knee History of elbow surgery Left elbow surgery. Family History Family History Father Diabetes mellitus Hypertension Other Family history of arthritis Family history of malignant neoplasm Social History Social History Social History: Surrogate decision maker: Eun Simmons, . Code status: Full code. Smoking packs per day: 1 Smoking cigarettes per day: 20.0 Years smoked: 30 Smoking pack-years: 30.00 Smoking status: Current every day smoker Tobacco type: cigarettes Alcohol intake: current Drinks per week: 18 Substance use: never Lack of Transportation: No Lack of Food: Never True Current Housing: I Have Housing Concerned About Future Housing: No Difficulty Paying Gas/Electric Bills: No Difficulty Paying for Meds: No Currently Unemployed: No Education: High School Diploma/GED Difficulty w/ Childcare or Family Care: No Living arrangements: with family Additional living arrangements comments: Lives in [place] with his . Occupation/Education: occupation Additional occupation/education comments: Works at [employer]. Gender identity (if verbalized by the patient): Male Sexual Orientation (if Verbalized by the Patient): Straight or Heterosexual Spiritual care concerns: No Comments At the time of my signature, I reviewed and agree with the nursing past medical, surgic
--- NOTE | 2023-05-13 14:23 | ECG_ITS ---
Measurements Intervals [place] Rate: 72 P: 59 CT: 138 QRS: 26 QRSD: 90 T: 41 QT: 366 QTc: 403 Interpretive Statements SINUS RHYTHM COMPARED TO ECG 09/27/2019 12:18:56 NO SIGNIFICANT CHANGES Electronically Signed On 05-14-2023 15:00:14 DRY KILN OPERATOR by Rossy Lozano M.D.
== END 2023-05-13 14:53 | disposition short-term general hospital (02) ==
PROVIDERS: Emergency Provider Nurse Practitioner; PCP Family Medicine
DX: J18.9 Pneumonia, unspecified organism (principal); F17.210 Nicotine dependence, cigarettes, uncomplicated
CPT/HCPCS: 71046; 93005; 99213; G0463

== ENCOUNTER 2023-05-13 15:08 | Emergency (ER) | payer BC, SELFPAY ==
[2023-05-13] VITALS (15 sets, daily range): BP systolic 121–170; BP diastolic 72–91; PULSE 70–79; RESP 12–20; TEMP 36.5–36.8; O2SAT 93–98
--- NOTE | ~2023-05-13 | CT_ITS ---
EXAMINATION: CTA chest PE protocol DATE: 05/13/2023 18:21 INDICATION: dyspnea, atypical chest pain TECHNIQUE: Computed tomography angiography (CTA) of the chest was performed with 100 mL Omnipaque-350 intravenous contrast timed to evaluate the pulmonary arteries. Coronal maximum intensity projection 3D-reconstructions were created by the technologist. The dose-length product (DLP) was 422.23 mGy-cm. Automated exposure control and iterative reconstruction technique were employed. COMPARISON: 09/27/2019 X-ray chest 05/13/2023. FINDINGS: Lung parenchyma and airways: Mild dependent atelectasis. Stable left lower lobe pulmonary nodule, lik claudio granuloma. Patent airways. Pleura: Unremarkable. Thoracic inlet, axillae and chest wall: Unremarkable. Thoracic aorta: Mild arch calcification. No aneurysm or dissection. Mediastinum: Normal. Heart and pericardium: Normal. Coronary artery calcifications: Absent. Upper abdomen: No significant finding. Bones: No acute osseous finding. Bone island in T5. Pulmonary arteries: Study quality: Adequate. No pulmonary emboli detected. IMPRESSION: No CT evidence of acute pulmonary embolus. No acute intrathoracic process. Reviewed, dictated and finalized at location K. IGHTENER
--- NOTE | ~2023-05-13 | XR_ITS ---
EXAMINATION: XR chest 2V DATE: 05/13/2023 15:46 INDICATION: Shortness of breath TECHNIQUE: Frontal and lateral views of the chest are obtained COMPARISON: 1425 hours FINDINGS: There are patchy opacities of the lung bases. No pleural effusion or pneumothorax. The card iomediastinal silhouette is normal. There is mild thoracic spondylosis. IMPRESSION: 1. Patchy opacities of the lung bases which could reflect pneumonia. Reviewed, dictated and finalized at location L. RESEARCH AIDE
--- NOTE | 2023-05-13 15:28 | ECG_ITS ---
Measurements Intervals [place] Rate: 69 P: 46 NC: 152 QRS: 26 QRSD: 86 T: 42 QT: 376 QTc: 404 Interpretive Statements SINUS RHYTHM COMPARED TO ECG 05/13/2023 14:31:48 NO SIGNIFICANT CHANGES Electronically Signed On 05-14-2023 15:03:19 ROPER OPERATOR by Rossy Lozano M.D.
--- NOTE | 2023-05-13 16:18 | ED.GENADULT ---
HPI - General Adult General Chief complaint: Shortness of Breath/Dyspnea Stated complaint: SOB Time Seen by Provider: 05/13/23 16:14 Focused HPI: This is a 57-year-old male who presents to the ED with chief complaint dysuria for the past couple weeks. Reports he was seen a few weeks ago by his PCP diagnosed with viral illness. Reports that he had getting over that but last few days he is having difficulty with breathing when lying flat. Also states ?I just do not feel myself. ? Also endorses a couple of weeks of intermittent central chest tightness. Does not radiate. Denies syncope, fevers, chills, nausea, vomiting, lower extremity swelling, palpitations. GENERAL: Well-appearing, well-nourished, and in no acute distress. HEAD: Normocephalic, atraumatic. CHEST: Clear to auscultation. No respiratory distress. 97% room air HEART: Regular rate and rhythm. NEURO: Alert and oriented x3. MSK: No lower extremity edema Patient screened in triage and initial orders placed. Additional care and disposition to be based upon diagnostic testing and treatment. Source: patient Mode of arrival: ambulatory Limitations: no limitations Related Data Allergies Allergy/AdvReac Type Severity Reaction Status Date / Time morphine AdvReac Intermediate Vomiting Verified 05/13/23 14:41 tramadol AdvReac Intermediate Vomiting Verified 05/13/23 14:41 PMFSH Past Medical History Medical History Degenerative disc disease Diverticulitis He has had 5 or 6 episodes of such since 2008. Osteoarthritis Surgical History Surgical History History of arthroscopy of right knee History of elbow surgery Left elbow surgery. Family History Family History Father Diabetes mellitus Hypertension Other Family history of arthritis Family history of malignant neoplasm Social History Social History Social History: Surrogate decision maker: Eun Simmons, . Code status: Full code. Smoking packs per day: 1 Smoking cigarettes per day: 20.0 Years smoked: 30 Smoking pack-years: 30.00 Smoking status: Current every day smoker Tobacco type: cigarettes Alcohol intake: current Drinks per week: 18 Substance use: never Lack of Transportation: No Lack of Food: Never True Current Housing: I Have Housing Concerned About Future Housing: No Difficulty Paying Gas/Electric Bills: No Difficulty Paying for Meds: No Currently Unemployed: No Education: High School Diploma/GED Difficulty w/ Childcare or Family Care: No Living arrangements: with family Additional living arrangements comments: Lives in [place] with his . Occupation/Education: occupation Additional occupation/education comments: Works at [employer]. Gender identity (if verbalized by the patient): Male Sexual Orientation (if Verbalized by the Patient): Straight or Heterosexual Spiritual care concerns: No Course Vital Signs Vital signs: Vital Signs Temperature 97.7 F 05/13/23 15:21 Pulse Rate 77 05/13/23 15:21 Respiratory Rate 20 05/13/23 15:21 Blood Pressure 170/82 H 05/13/23 15:21 Pulse Oximetry 97 05/13/23 15:21 Oxygen Delivery Room Air 05/13/23 15:21 Temperature 98.3 F 05/13/23 20:29 Pulse Rate 77 05/13/23 20:29 Respiratory Rate 20 05/13/23 20:29 Blood Pressure 148/72 H 05/13/23 20:29 Pulse Oximetry 97 05/13/23 20:29 Oxygen Delivery Room Air 05/13/23 19:08 Medical Decision Making Vital Signs Vital Signs: Vital Signs Temperature 97.7 F 05/13/23 15:21 Pulse Rate 77 05/13/23 15:21 Respiratory Rate 20 05/13/23 15:21 Blood Pressure 170/82 H 05/13/23 15:21 Pulse Oximetry 97 05/13/23 15:21 Oxygen Delivery Room Air 05/13/23 15:21 Tem
[2023-05-13 16:36] LABS: Basophils Absolute Auto 0.1 K/mm3 (0.0-0.1); Basophils Percent Auto 0.7 % (0.2-1.2); Eosinophils Absolute Auto 0.4 K/mm3 (0-0.3); Eosinophils Percent Auto 3.7 % (0-4.4); Hematocrit 53.7 % (42.0-52.0); Hemoglobin 18.2 g/dL (14.0-18.0); Immature Granulocyte Absolute 0.05 K/mm3 (0.00-0.031); Immature Granulocyte Percent A 0.5 % (0-0.5); Lymphocytes Absolute Auto 2.74 K/mm3 (0.9-3.2); Lymphocytes Percent Auto 25.6 % (18.3-44.2); Mean Corpuscular HGB Conc 33.9 g/dl (32-36); Mean Corpuscular Hemoglobin 32.7 pg (26-34); Mean Corpuscular Volume 96.4 fl (80-100); Mean Platelet Volume 8.9 fl (7.4-10.4); Monocytes Absolute Auto 1.3 K/mm3 (0.1-0.6); Monocytes Percent Auto 11.7 % (2.6-8.5); Neutrophils Absolute Auto 6.2 K/mm3 (1.3-6.7); Neutrophils Percent Auto 57.8 % (45.5-73.1); Platelet Count Result 252 k/mm3 (150-375); Red Blood Count 5.57 M/mm3 (4.6-6.20); Red Cell Distribution Width 14.7 % (11.5-14.5); White Blood Count 10.7 K/mm3 (4.5-10.0)
[2023-05-13 16:49] LABS: Alanine Aminotransferase 23 U/L (6-50); Alkaline Phosphatase 65 U/L (38-126); Anion Gap 4 mmol/L (8-16); Aspartate Amino Transferase 36 U/L (17-59); Bilirubin,Total 0.8 mg/dL (0.2-1.3); Blood Urea Nitrogen 14 mg/dL (9-20); Calcium 9.2 mg/dL (8.4-10.2); Carbon Dioxide 26 mmol/L (22-30); Chloride 109 mmol/L (98-107); Estimated CRCL calculation 83 ml/min; Estimated Glomerular Filt Rate > 60; Glucose 100 mg/dL (65-110); Potassium 4.1 mmol/L (3.4-5.0); Sodium 139 mmol/L (137-145)
[2023-05-13 17:02] LABS: NT Pro B Type Natriuretic Pept 99 pg/mL (19.9-100); Troponin I < 0.012 ng/mL (0.000-0.034)
--- NOTE | 2023-05-13 17:54 | ED.SOB ---
HPI - SOB/Dyspnea General Chief Complaint: Shortness of Breath/Dyspnea Stated Complaint: SOB Time Seen by Provider: 05/13/23 16:14 Source: patient Mode of arrival: ambulatory Limitations: no limitations History of Present Illness HPI Narrative: 57-year-old male reports for evaluation for dyspnea x1 week. Patient states approximately 3-4 weeks ago, he had symptoms of URI with a cough. He was prescribed cough medications with codeine by his PCP. States has improved, however still persistent. States 1 week ago, he did developed shortness of breath which is progressively getting worse. He went to urgent care and had a chest x-ray performed which showed concern for pneumonia, therefore he was sent to the ER. He is reporting intermittent sharp anterior wall chest pain that has been occurring recently. States the pain will occur her out of no where, last a few minutes and then spontaneously resolved. He denies associated nausea, vomiting, diaphoresis, radiating pain. No aggravating or alleviating factors. Denies fever, nausea or vomiting, abdominal pain, lower extremity edema or calf pain. He reports he has a history of pulmonary nodules and is supposed to have a CT scan soon for further evaluation. He smoked 1ppd for 25-30 years. Denies prior dx of COPD or asthma. Related Data Allergies Allergy/AdvReac Type Severity Reaction Status Date / Time morphine AdvReac Intermediate Vomiting Verified 05/13/23 14:41 tramadol AdvReac Intermediate Vomiting Verified 05/13/23 14:41 Review of Systems Review of Systems: CONSTITUTIONAL: Denies fever, chills, or sweats. EYES: Denies visual changes, redness, or discharge. ENT: Denies rhinorrhea, congestion, sore throat, or otalgia. CARDIOVASCULAR: See HPI RESPIRATORY: See HPI GASTROINTESTINAL: Denies abdominal pain, nausea, vomiting, or diarrhea. GENITOURINARY: Denies dysuria or hematuria. SKIN: Denies rash or itching. MUSCULOSKELETAL: Denies back pain, joint pain, or myalgia. NEUROLOGIC: Denies headache, numbness, or weakness. PSYCHIATRIC: Denies anxiety or depression. [facility] Past Medical History Medical History Degenerative disc disease Diverticulitis He has had 5 or 6 episodes of such since 2008. Osteoarthritis Surgical History Surgical History History of arthroscopy of right knee History of elbow surgery Left elbow surgery. Family History Family History Father Diabetes mellitus Hypertension Other Family history of arthritis Family history of malignant neoplasm Social History Social History Social History: Surrogate decision maker: Eun Simmons, . Code status: Full code. Smoking packs per day: 1 Smoking cigarettes per day: 20.0 Years smoked: 30 Smoking pack-years: 30.00 Smoking status: Current every day smoker Tobacco type: cigarettes Alcohol intake: current Drinks per week: 18 Substance use: never Lack of Transportation: No Lack of Food: Never True Current Housing: I Have Housing Concerned About Future Housing: No Difficulty Paying Gas/Electric Bills: No Difficulty Paying for Meds: No Currently Unemployed: No Education: High School Diploma/GED Difficulty w/ Childcare or Family Care: No Living arrangements: with family Additional living arrangements comments: Lives in [place] with his . Occupation/Education: occupation Additional occupation/education comments: Works at [employer]. Gender identity (if verbalized by the patient): Male Sexual Orientation (if Verbalized by the Patient): Straight or Heterosexual Spiritual care concerns: No Exam Narrative: GENERAL: Well-appearing, well-nourished, and in no acute distress. Patient resting comfortably in exam bed. Satting
[2023-05-13] MEDS: IPRATROPIUM 0.5 MG/ALBUTEROL SULFATE 2.5 MG AMPUL.NEB 3 ML INHALATION (18:01)
[2023-05-13 18:28] LABS: INR 0.9; Prothrombin Time 12.7 Seconds (11.1-14.7)
[2023-05-13 18:29] LABS: Partial Thromboplastin Time 29.1 SECONDS (22.3-36.8)
--- NOTE | 2023-05-13 18:57 | PC.NURSE ---
Report to Kenneth GARCIA
--- NOTE | 2023-05-13 19:06 | ECG_ITS ---
Measurements Intervals [place] Rate: 66 P: 43 TX: 170 QRS: 7 QRSD: 86 T: 22 QT: 394 QTc: 414 Interpretive Statements SINUS RHYTHM COMPARED TO ECG 05/13/2023 16:20:07 NO SIGNIFICANT CHANGES Electronically Signed On 05-14-2023 15:05:52 FORM MAKER PLASTER by Rossy Lozano M.D.
[2023-05-13 19:45] LABS: Influenza A QL RT-PCR Negative (Negative); Influenza B QL RT-PCR Negative (Negative); RSV RNA, RT-PCR Negative (Negative); SARS-CoV-2 RNA PCR Negative (Negative)
[2023-05-13 19:47] LABS: Troponin I < 0.012 ng/mL (0.000-0.034)
== END 2023-05-13 20:30 | disposition home or self-care (01) ==
PROVIDERS: Emergency Medicine; Physician Assistant; Emergency Provider Physician Assistant; PCP Family Medicine
DX: R06.00 Dyspnea, unspecified (principal); R07.89 Other chest pain; Z20.822 Contact with and (suspected) exposure to COVID-19; F17.210 Nicotine dependence, cigarettes, uncomplicated; M19.90 Unspecified osteoarthritis, unspecified site
CPT/HCPCS: 36415; 71046; 71275; 80053; 83880; 84484; 85025; 85610; 85730; 87637; 93005; 94640; 99284; Q9967

== ENCOUNTER 2025-01-21 08:46 | Outpatient (CLI) | payer BC, SELFPAY ==
--- NOTE | ~2025-01-21 | CT_ITS ---
EXAMINATION:CT lung screening DATE: 01/21/2025 09:01 INDICATION: Personal history of nicotine dependence. TECHNIQUE: Computed tomography (CT) of the chest was performed without intravenous contrast. Automated exposure control and iterative reconstruction technique were employed. The dose-length product (DLP) was 109.47 mGy-cm. COMPARISON: Chest CT 05/13/2023 FINDINGS: There is mild scarring at the lung apices. There is mild emphysema. There are mild groundglass opacities in the upper lobes. There is a 4 mm groundglass nodule in left upper lobe. A calcified right lung nodule is consistent with old granulomatous disease. There is a stable 5 mm nodule left ma crissy fissure. There is a stable 4 mm nodule in left lower lobe. No pleural effusion. The heart size is normal. There are coronary artery calcifications. No pericardial effusion. There is mild thoracic spondylosis. There is a benign bone island in T5 vertebral body. IMPRESSION: 1. Lung-RADS category 2: Benign appearance or behavior. Continue annual screening with noncontrast low-dose chest CT in 12 months. Reviewed, dictated and finalized at location E. IMPRESSION: 1. Lung-RADS category 2: Benign appearance or behavior. Continue annual screeni ng with noncontrast low-dose chest CT in 12 months.
--- NOTE | ~2025-01-21 | XR_ITS ---
EXAMINATION: XR chest 2V, 01/21/2025 9:01 CDT HISTORY: R06.02 - Shortness of breath COMPARISON: No comparisons available. Technique: 2 views obtained. Findings: The lungs are clear, no effusion. No pneumothorax. Heart is normal size. Mediastinal and hilar contours are within normal limits. Bony thorax no acute abnormality. Impression: No acute cardiopulmonary abnormality. Reviewed, dictated and finalized at location P. Impression: No acute cardiopulmonary abnormality.
== END 2025-01-21 08:47 | disposition home or self-care (01) ==
LOC: MICIMG 08:48
PROVIDERS: PCP Family Medicine
DX: Z12.2 Encounter for screening for malignant neoplasm of respiratory organs (principal); Z87.891 Personal history of nicotine dependence
CPT/HCPCS: 71046; 71271

== ENCOUNTER 2025-02-14 07:45 | Outpatient (CLI) | payer BC, SELFPAY ==
--- OUTSIDE RECORDS SUMMARY | 2025-02-14 07:48 | XMS_ITS | Clinical Summary ---
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 Name Role Phone None, Provider MD Primary Care Provider Unavaila ble Allergies No known active allergies Medications No known medications Active Problems No known active problems Social History Tobacco Use Types Packs/Day Years Used Date Smoking Tobacco: Every Day Cigarettes Smokeless Tobacco: Never Tobacco Cessation:Ready to Q uit: No; Counseling Given: Yes Sex and Gender Information Value Date Recorded Sex Assigned at Not on file Legal Sex Male 8:25 AM CDT Gender Identity Not on file Sexual Orientation Not on file Last Filed Vital Signs Vital Sign Reading Time Taken Comments Blood Pressure 158/87 01/30/2019 9:45 AM CDT Pulse 75 01/30/2019 9:45 AM CDT Temperature 36.5 C (97.7 F) 01/30/2019 9:42 AM CDT Respiratory Rate 18 01/30/2019 9:42 AM CDT Oxygen Saturation 98% 01/30/2019 9:45 AM CDT Inhaled Oxygen Concentration - - Weight 91.2 kg (201 lb) 01/30/2019 9:42 AM CDT Height 180.3 cm (5' 11) 01/30/2019 9:42 AM CDT Body Mass Index 28.03 01/30/2019 9:42 AM CDT Plan of Treatment Health Maintenance Due Date Last Done Comments Colorectal Cancer Screening Colonoscopy (10 Years) 1963 Annual Physical 11/17/1966 Hepatitis C 11/17/1981 DTaP, Tdap and Td Vaccines ( 1 - Tdap) 11/17/1982 Pneumococcal Vaccine: 50+ Ye ars (1 of 2 - PCV) 11/17/1982 Zoster Vaccines (1 of 2) 11/17/2013 COVID-19 Vaccine (1 - 2024-2 6 season) 2024 Influenza Adult (#1) 2025 RSV Immunization or 60+ Years (1 - 1-dose 75+ series) 11/17/2038 Hepatitis A Vaccines Aged Out No long er eligible based on patient's age to complete this topic Meningococcal B Vaccine Aged Out No l onger eligible based on patient's age to complete this topic Meningococcal Vaccine Aged Out No maximo darnell eligible based on patient's age to complete this topic RSV Immunizations Under 20 Months Aged Out No longer eligible based on patient's age to complete this topic Insurance BS Care Teams Oil Well Perforator Operator Relationship Specialty Start Date End Date None, Provider, PCP - General 01/30/19
--- NOTE | 2025-02-14 16:07 | WPDPFTINT ---
PFT Procedure Performed PFT Procedure Performed Spirometry with Pre/Post Bronchodilator Plethysmography (Lung Vol) Diffusing Cap (DLCO) Flow Vol Loop PFT Interpretation This is a pulmonary function test with pre and post-bronchodilator spirometry, plethysmography and diffusing capacity. The test was performed and results interpreted in accordance with the 2019 and 2005 ATS/ERS Task Force guidelines respectively using the Global Lung Function Initiative-2012 reference equations. Patient demonstrated good effort and cooperation. Reproducibility criteria were met. The quality of the pre bronchodilator spirometry maneuver was Grade A and post bronchodilator spirometry maneuver was Grade A. Findings: Spirometry: The contour the expiratory flow tracing is normal in 1 maneuver, is notched in 1 maneuver, and shows a subtle sawtooth pattern in 4 maneuvers. The contour the inspiratory flow tracing is truncated. The pre bronchodilator FVC is 4.75 L, 100% predicted. The pre bronchodilator FEV1 is 3.10 L, 85% predicted. The pre bronchodilator FEV1: FVC ratio is 65%. The post bronchodilator FVC is 4.64 L, representing a 2% decrease. The post bronchodilator FEV1 is 3.23 L, representing a 4% increase. The post bronchodilator FEV1: FVC ratio is 70%. Plethysmography: The total lung capacity 7.03 L, 98% predicted. The functional residual capacity is 4.60 L, 122% predicted. The residual volume is 2.27 L, 98% predicted. Diffusing capacity: The diffusing capacity unadjusted for hemoglobin and carboxyhemoglobin is 21.2, 74% predicted. The diffusing capacity adjusted for alveolar volume is 3.23, 78% predicted. Impression: The notched pattern has been described with coughing or tracheobronchomalacia. The contour the expiratory flow tracing demonstrates a reproducible oscillating or sawtooth pattern. This is usually generated by air flow disturbances in the upper airway are from tremors of the respiratory muscles. This has been associated with sleep apnea, obesity, snorers without obstructive sleep apnea, upper airway injury, upper airway stenosis, tracheobronchomalacia, neuromuscular disorders with bulbar involvement, burn injury of the upper airway, diaphragmatic myoclonus, and herpes zoster of abdominal muscles. Clinical correlation is recommended. Otherwise, there is a mild obstructive abnormality with a normal FEV1. There is no significant improvement after inhaling a single dose of albuterol. The lung volumes are normal. The diffusing capacity is normal. There are no prior studies for comparison
== END 2025-02-14 07:46 | disposition home or self-care (01) ==
PROVIDERS: PCP Family Medicine
DX: J44.9 Chronic obstructive pulmonary disease, unspecified (principal); F17.200 Nicotine dependence, unspecified, uncomplicated
CPT/HCPCS: 94060; 94726; 94729